=== PATIENT | female | born 1985 | race Caucasian/White ===

== ENCOUNTER 2016-09-07 07:25 | Emergency (ER) | payer BC ==
[2016-09-07 08:33] LABS: HEMOGLOBIN 14.1 gm/dl (12.3-15.3); RED BLOOD COUNT 4.96 M/UL (4.00-5.10); WHITE BLOOD COUNT 6.6 K/UL (4.5-11.0)
[2016-09-07 08:49] LABS: BUN/CREATININE RATIO 12 (0-10)
== END 2016-09-07 09:40 | disposition home or self-care (01) ==
LOC: ER1 07:25
PROVIDERS: Emergency Medicine
DX: J10.1 Influenza due to other identified influenza virus with other respiratory manifestations (principal); R11.10 Vomiting, unspecified; E03.9 Hypothyroidism, unspecified; Z79.899 Other long term (current) drug therapy
CPT/HCPCS: 36415; 80053; 81001; 84703; 85025; 87077; 87081; 87086; 87186; 87880; 96361; 96374; 99283; J2405; J7030